=== PATIENT | female | born 1970 | race Caucasian/White ===

== ENCOUNTER 2020-06-12 09:18 | Inpatient (IN) | payer OTHER ==
[2020-06-12 10:38] VITALS: BMI 35.4
[2020-06-12] MEDS ORDERED: NICOTINE POLACRILEX 2 MG GUM BUC PRN (11:10)
[2020-06-12] MEDS ORDERED: MAGNESIUM HYDROX 2400MG/30ML ORAL SUSPENSION 30 ML CUP PO PRN (11:10)
[2020-06-12] MEDS ORDERED: ACETAMINOPHEN 325 MG TABLET (FP) PO PRN (11:10)
[2020-06-12] MEDS ORDERED: MENTHOL/PHENOL 1 EACH UD MM PRN (11:10)
[2020-06-12] MEDS ORDERED: BISMUTH SUBSALICYLATE 524 MG/30 ML UD PO PRN (11:10)
[2020-06-12] MEDS ORDERED: MAG HYDROX/AL HYDROX/SIMETH 30 ML UNIT-DOSE CUP PO PRN (11:10)
[2020-06-12] MEDS ORDERED: chlordiazePOXIDE HCL 25 MG CAPSULE PO PRN (11:10)
[2020-06-12] MEDS ORDERED: METHOCARBAMOL 500 MG TABLET PO PRN (11:10)
[2020-06-12] MEDS ORDERED: MAGNESIUM CITRATE 300 ML BOTTLE PO PRN (11:10)
[2020-06-12] MEDS ORDERED: ETODOLAC 400 MG PO PRN (11:12)
[2020-06-12] MEDS ORDERED: ACETAMINOPHEN 325 MG TABLET (FP) ONE (13:04)
[2020-06-12] MEDS: ACETAMINOPHEN 325 MG TABLET (FP) PO PRN (13:06)
[2020-06-12] MEDS: NICOTINE 14 MG/24 HOURS TOPICAL PATCH TD SCH (13:55)
[2020-06-12] MEDS: hydrOXYzine PAMOATE 25 MG CAPSULE (FP) PO SCH ×3 (13:55→22:50)
[2020-06-12] MEDS: chlordiazePOXIDE HCL 25 MG CAPSULE PO SCH ×3 (13:55→22:49)
[2020-06-12] MEDS: IBUPROFEN 400 MG TABLET (FP) PO PRN (13:56)
[2020-06-12] MEDS: PRENATAL VITAMINS W/ FOLIC ACID TABLET (FP) PO SCH (13:56)
[2020-06-12 14:20] LABS: HEMATOCRIT 32.3 % (32.4-45.2); HEMOGLOBIN 10.4 GM/dL (10.7-15.3); MCH 26.9 pg (25.7-33.7); MCHC 32.1 g/dl (32.0-36.0); MEAN CELL VOLUME 83.9 fl (80-96); MEAN PLT VOLUME 9.3 fl (7.5-11.1); PLATELET COUNT 235 K/MM3 (134-434); RBC 3.84 M/mm3 (3.60-5.2); RDW 20.7 % (11.6-15.6); WHITE BLOOD COUNT 7.5 K/mm3 (4.0-10.0)
[2020-06-12 14:21] LABS: POTASSIUM 3.4 mmol/L (3.5-5.1)
[2020-06-12 14:26] LABS: CREATININE 0.7 mg/dL (0.55-1.3)
[2020-06-12 14:27] LABS: BILIRUBIN,TOTAL 0.6 mg/dL (0.2-1)
[2020-06-12 14:28] LABS: TOT PROT 7.3 g/dl (6.4-8.2)
[2020-06-12 14:40] LABS: ALBUMIN 3.8 g/dl (3.4-5.0); BLOOD UREA NITROGEN 12.4 mg/dL (7-18); CALCIUM 9.1 mg/dL (8.5-10.1)
[2020-06-12 15:20] LABS: HIV INTERPRETATION NEGATIVE (NEGATIVE)
[2020-06-12] MEDS: ONDANSETRON *ODT* 4 MG TABLET SL PRN (15:24)
[2020-06-12] MEDS: LIDOCAINE HCL 5% TOP OINTMENT 50 GM TUBE TP SCH ×3 (15:26→22:48)
[2020-06-12] MEDS: MECLIZINE HCL 25 MG TABLET (FP) PO PRN (18:11)
[2020-06-12] MEDS: guaiFENesin 200 MG/10 ML 10 ML UNIT-DOSE CUPS PO PRN (18:51)
[2020-06-12] MEDS: MELATONIN 5 MG TABLETS PO SCH (22:49)
[2020-06-12] MEDS: THIAMINE HCL 100 MG TABLET (FP) PO SCH (22:49)
[2020-06-12] MEDS: ALBUTEROL SO4 HFA INHALER IH PRN (22:49)
[2020-06-12] MEDS: ARIPiprazole 10 MG TABLET PO SCH (22:49)
[2020-06-13] MEDS: chlordiazePOXIDE HCL 25 MG CAPSULE PO SCH ×4 (06:19→22:55)
[2020-06-13] MEDS: hydrOXYzine PAMOATE 25 MG CAPSULE (FP) PO SCH ×5 (06:20→22:55)
[2020-06-13] MEDS: PRENATAL VITAMINS W/ FOLIC ACID TABLET (FP) PO SCH (11:32)
[2020-06-13] MEDS: NICOTINE 14 MG/24 HOURS TOPICAL PATCH TD SCH (11:32)
[2020-06-13] MEDS: valACYclovir HCL 500 MG TABLET (FP) PO SCH (11:32)
[2020-06-13] MEDS: LIDOCAINE HCL 5% TOP OINTMENT 50 GM TUBE TP SCH ×4 (11:32→23:37)
[2020-06-13] MEDS: LIDOCAINE 5% TOPICAL PATCH TP SCH (11:45)
[2020-06-13] MEDS ORDERED: PNEUMOC 13-VAL CONJ-DIP CRM/PF 0.5 ML DISP.SYRIN IM ONE (12:00)
[2020-06-13] MEDS ORDERED: FLU VACCINE (FLULAVAL) PF 60 MCG/0.5 ML SYRINGE 2020-2021 IM ONE (12:00)
[2020-06-13] MEDS ORDERED: POTASSIUM CHLORIDE TABS 20 MEQ TABLET.ER (FP) PO ONE (15:51)
[2020-06-13] MEDS ORDERED: PNEUMOCOCCAL 23 VACCINE 0.5 ML VIAL IM ONE (20:00)
[2020-06-13] MEDS: ARIPiprazole 10 MG TABLET PO SCH (22:55)
[2020-06-13] MEDS: THIAMINE HCL 100 MG TABLET (FP) PO SCH (22:55)
[2020-06-13] MEDS: MELATONIN 5 MG TABLETS PO SCH (22:56)
[2020-06-13] MEDS: LIDOCAINE PATCH REMOVAL MC SCH (22:59)
[2020-06-13] MEDS: guaiFENesin 200 MG/10 ML 10 ML UNIT-DOSE CUPS PO PRN (23:37)
[2020-06-14] MEDS: chlordiazePOXIDE HCL 25 MG CAPSULE PO SCH ×4 (07:13→22:38)
[2020-06-14] MEDS: hydrOXYzine PAMOATE 25 MG CAPSULE (FP) PO SCH ×5 (07:14→22:39)
[2020-06-14] MEDS: ONDANSETRON *ODT* 4 MG TABLET SL PRN (07:20)
[2020-06-14] MEDS ORDERED: MECLIZINE HCL 25 MG TABLET (FP) PO ONE (09:32)
[2020-06-14] MEDS: NICOTINE 14 MG/24 HOURS TOPICAL PATCH TD SCH (10:48)
[2020-06-14] MEDS: LIDOCAINE 5% TOPICAL PATCH TP SCH (10:48)
[2020-06-14] MEDS: LIDOCAINE HCL 5% TOP OINTMENT 50 GM TUBE TP SCH ×4 (10:49→22:41)
[2020-06-14] MEDS: valACYclovir HCL 500 MG TABLET (FP) PO SCH (10:49)
[2020-06-14] MEDS: PRENATAL VITAMINS W/ FOLIC ACID TABLET (FP) PO SCH (10:49)
[2020-06-14] MEDS ORDERED: PNEUMOCOCCAL 23 VACCINE 0.5 ML VIAL IM ONE (12:00)
[2020-06-14] MEDS: MELATONIN 5 MG TABLETS PO SCH (22:37)
[2020-06-14] MEDS: ARIPiprazole 10 MG TABLET PO SCH (22:37)
[2020-06-14] MEDS: THIAMINE HCL 100 MG TABLET (FP) PO SCH (22:38)
[2020-06-14] MEDS: LIDOCAINE PATCH REMOVAL MC SCH (22:41)
[2020-06-15] MEDS ORDERED: chlordiazePOXIDE HCL 10 MG CAPSULE PO PRN
[2020-06-15] MEDS: chlordiazePOXIDE HCL 10 MG CAPSULE PO SCH ×4 (06:23→22:15)
[2020-06-15] MEDS: hydrOXYzine PAMOATE 25 MG CAPSULE (FP) PO SCH ×5 (06:24→22:14)
[2020-06-15] MEDS: IBUPROFEN 400 MG TABLET (FP) PO PRN (06:26)
[2020-06-15] MEDS: LIDOCAINE 5% TOPICAL PATCH TP SCH (11:13)
[2020-06-15] MEDS: NICOTINE 14 MG/24 HOURS TOPICAL PATCH TD SCH (11:14)
[2020-06-15] MEDS: PRENATAL VITAMINS W/ FOLIC ACID TABLET (FP) PO SCH (11:15)
[2020-06-15] MEDS: valACYclovir HCL 500 MG TABLET (FP) PO SCH (11:15)
[2020-06-15] MEDS: LIDOCAINE HCL 5% TOP OINTMENT 50 GM TUBE TP SCH ×4 (11:15→22:18)
[2020-06-15] MEDS: MECLIZINE HCL 25 MG TABLET (FP) PO PRN ×2 (11:20→22:18)
[2020-06-15] MEDS ORDERED: cloNIDine HCL 0.1 MG TABLET PO PRN (12:18)
[2020-06-15] MEDS: FERROUS SO4 325 MG TABLET (FP) PO SCH (14:03)
[2020-06-15] MEDS: MELATONIN 5 MG TABLETS PO SCH (22:14)
[2020-06-15] MEDS: ARIPiprazole 10 MG TABLET PO SCH (22:14)
[2020-06-15] MEDS: THIAMINE HCL 100 MG TABLET (FP) PO SCH (22:14)
[2020-06-15] MEDS: LIDOCAINE PATCH REMOVAL MC SCH (23:23)
[2020-06-16] MEDS: hydrOXYzine PAMOATE 25 MG CAPSULE (FP) PO SCH ×5 (06:19→22:32)
[2020-06-16] MEDS: chlordiazePOXIDE HCL 10 MG CAPSULE PO SCH ×2 (06:21→18:18)
[2020-06-16] MEDS: MECLIZINE HCL 25 MG TABLET (FP) PO PRN ×2 (06:24→14:38)
[2020-06-16] MEDS: ALBUTEROL SO4 HFA INHALER IH PRN (09:10)
[2020-06-16] MEDS: valACYclovir HCL 500 MG TABLET (FP) PO SCH (10:49)
[2020-06-16] MEDS: PRENATAL VITAMINS W/ FOLIC ACID TABLET (FP) PO SCH (10:49)
[2020-06-16] MEDS: FERROUS SO4 325 MG TABLET (FP) PO SCH (10:49)
[2020-06-16] MEDS: NICOTINE 14 MG/24 HOURS TOPICAL PATCH TD SCH (10:50)
[2020-06-16] MEDS: LIDOCAINE 5% TOPICAL PATCH TP SCH (10:51)
[2020-06-16] MEDS ORDERED: MASKS NR ONE (13:33)
[2020-06-16] MEDS: LIDOCAINE HCL 5% TOP OINTMENT 50 GM TUBE TP SCH ×4 (14:39→22:34)
[2020-06-16] MEDS ORDERED: ALBUTEROL SO4 0.083% IH SOL 2.5 MG/3 ML VIAL.NEB. NEB PRN (15:44)
[2020-06-16] MEDS: ACETAMINOPHEN 325 MG TABLET (FP) PO PRN (20:30)
[2020-06-16] MEDS: ARIPiprazole 10 MG TABLET PO SCH (22:31)
[2020-06-16] MEDS: THIAMINE HCL 100 MG TABLET (FP) PO SCH (22:31)
[2020-06-16] MEDS: MELATONIN 5 MG TABLETS PO SCH (22:32)
[2020-06-16] MEDS: LIDOCAINE PATCH REMOVAL MC SCH (22:32)
[2020-06-17] MEDS ORDERED: chlordiazePOXIDE HCL 10 MG CAPSULE PO ONE (05:00)
[2020-06-17] MEDS: hydrOXYzine PAMOATE 25 MG CAPSULE (FP) PO SCH ×2 (06:09→09:37)
[2020-06-17] MEDS: IBUPROFEN 400 MG TABLET (FP) PO PRN (06:12)
[2020-06-17] MEDS: FERROUS SO4 325 MG TABLET (FP) PO SCH (09:36)
[2020-06-17] MEDS: PRENATAL VITAMINS W/ FOLIC ACID TABLET (FP) PO SCH (09:37)
[2020-06-17] MEDS: NICOTINE 14 MG/24 HOURS TOPICAL PATCH TD SCH (09:37)
[2020-06-17] MEDS: LIDOCAINE HCL 5% TOP OINTMENT 50 GM TUBE TP SCH (09:37)
[2020-06-17 09:44] VITALS: BP 133/82; PULSE 88; TEMP 97.9
== END 2020-06-17 09:31 | disposition home or self-care (01) | DRG 774 ==
LOC: YASAS 09:18 → Y6N 13:12
PROVIDERS: ADMIT Allergy & Immunology; ATTEND Allergy & Immunology
PROC: HZ2ZZZZ Detoxification Services for Substance Abuse Treatment (ICD-10-PCS; principal; 2020-06-12)
DX: F10.230 Alcohol dependence with withdrawal, uncomplicated (principal); F14.20 Cocaine dependence, uncomplicated; F17.210 Nicotine dependence, cigarettes, uncomplicated; F19.282 Other psychoactive substance dependence with psychoactive substance-induced sleep disorder; F19.280 Other psychoactive substance dependence with psychoactive substance-induced anxiety disorder; F19.24 Other psychoactive substance dependence with psychoactive substance-induced mood disorder; A53.0 Latent syphilis, unspecified as early or late; D50.9 Iron deficiency anemia, unspecified; G43.909 Migraine, unspecified, not intractable, without status migrainosus; J45.909 Unspecified asthma, uncomplicated; M17.0 Bilateral primary osteoarthritis of knee; E87.6 Hypokalemia; R74.01 Elevation of levels of liver transaminase levels; E66.9 Obesity, unspecified; Z68.35 Body mass index [BMI] 35.0-35.9, adult; Z86.19 Personal history of other infectious and parasitic diseases; Z59.0 Homelessness; Z91.011 Allergy to milk products; Z98.84 Bariatric surgery status; Z98.890 Other specified postprocedural states
CPT/HCPCS: 36415; 80053; 82962; 84132; 85027; 86593; 86780; 87389; C9803; J0735; Q0162; U0003